=== PATIENT | male | born 1940 | race African-American/Black ===

== ENCOUNTER 2022-08-03 14:07 | Emergency (ER) | payer MEDICARE | END 2022-08-03 16:20 | LOC: NAV ERS 14:07 | DX: S20.212A Contusion of left front wall of thorax, initial encounter (principal); E78.00 Pure hypercholesterolemia, unspecified; I10 Essential (primary) hypertension; F17.210 Nicotine dependence, cigarettes, uncomplicated; X58.XXXA Exposure to other specified factors, initial encounter | CPT/HCPCS: 72170 ==